=== PATIENT | female | born 1940 | race Caucasian/White ===

== ENCOUNTER → 2017-08-03 | Outpatient (REF) | payer MEDICARE, OTHER | LOC: M SMT 17:04 | PROVIDERS: ATTEND Urology | DX: R30.0 Dysuria (principal) ==

== ENCOUNTER → 2017-08-18 | Outpatient (REF) | payer MEDICARE, OTHER | LOC: M SMT 13:05 | PROVIDERS: ATTEND Nurse Practitioner Family | DX: N39.0 Urinary tract infection, site not specified (principal) ==

== ENCOUNTER 2018-08-02 07:20 | Day surgery (SDC) | payer MEDICARE, OTHER ==
[~2018-08-02 07:20] MED LIST: ACETAMINOPHEN 325 MG TAB PO; LIDOCAINE 3.5 % 1ML OPHTH TOPICAL GEL OU; OFLOXACIN 0.3 % (OCUFLOX) OPTH SOL 5ML OS; PROPARACAINE 0.5% OPHTH SOL 15ML OS
[2018-08-02] MEDS: BETAMETHASONE SOLUSPAN 6MG/ML INJ 5ML (J0702) As Ordered (09:03)
[2018-08-02] MEDS: LIDOCAINE 2% W/EPIN INJ 20ML **PRES FREE As Ordered (09:04)
[2018-08-02] MEDS ORDERED: fentaNYL 100 MCG/2 ML INJECTION (J3010) As Ordered (09:23)
[2018-08-02] MEDS ORDERED: MIDAZOLAM INJ 2 MG/2 ML VIAL (J2250) As Ordered (09:23)
[2018-08-02] MEDS: DUOVISC (0.50ML VISCOAT/0.55ML PROVISC) OPHTH KIT As Ordered (09:24)
[2018-08-02] MEDS: HEALON DUET PRO(HEALON 10MG/ML 0.55ML & HEALON ENDOCOAT 30MG/ML 0.85ML) As Ordered (09:24)
[2018-08-02] MEDS: POVIDONE-IODINE 5% OPHTH PREP SOL 30ML As Ordered (09:25)
[2018-08-02] MEDS: CEFUROXIME 1MG/0.1ML INTRACAMERAL INJ As Ordered (09:31)
[2018-08-02] MEDS: TOBRADEX OPHTH OINT 3.5 GM As Ordered (09:33)
[2018-08-02] MEDS ORDERED: TRIMETHOBENZAMIDE 300 MG CAP PO (10:45)
== END 2018-08-02 10:45 | disposition home or self-care (01) ==
LOC: M SDC 07:20
DX: H18.22 Idiopathic corneal edema (principal); I10 Essential (primary) hypertension; E78.5 Hyperlipidemia, unspecified; Z79.82 Long term (current) use of aspirin; Z79.899 Other long term (current) drug therapy
CPT/HCPCS: 66184

== ENCOUNTER → 2020-01-30 | Outpatient (REF) | payer MEDICARE, OTHER ==
[~2020-01-30] MED LIST changes: -ACETAMINOPHEN 325 MG TAB PO; +ASPI81TA26 PO; +COSO1SOL2 OU; +DOXY200C PO; +LEVO125T4 PO; -LIDOCAINE 3.5 % 1ML OPHTH TOPICAL GEL OU; +METO1TAB7 PO; +MULT1TAB10 PO; -OFLOXACIN 0.3 % (OCUFLOX) OPTH SOL 5ML OS; +OMEG1CAP16 PO; +OMEP1CAP73 PO; +PRAV10TA3 PO; -PROPARACAINE 0.5% OPHTH SOL 15ML OS; +zioptan OU
[2020-01-30 19:47] LABS: APPEARANCE, URINE HAZY (CLEAR); BACTERIA, URINE AUTO NEGATIVE (NEGATIVE); BILIRUBIN, URINE AUTO NEGATIVE (NEGATIVE); BLOOD, URINE BLOOD NEGATIVE (NEGATIVE); COLOR, URINE YELLOW (YELLOW); GLUCOSE, URINE (UA) AUTO NEGATIVE (NEGATIVE); KETONE, URINE AUTO NEGATIVE (NEGATIVE); LEUKOCYTE ESTERASE, URINE AUTO 3+ (NEGATIVE); MUCUS, URINE SMALL (NEGATIVE); NITRITE, URINE AUTO NEGATIVE (NEGATIVE); PROTEIN, URINE AUTO NEGATIVE (NEGATIVE); RBC, URINE AUTO 8 /HPF (0-3); SPECIFIC GRAVITY URINE AUTO 1.021 (1.002-1.035); SQUAMOUS EPITHELIAL CELL UR AU 0 /HPF (0-6); UROBILINOGEN, URINE AUTO 0.2 mg/dL (0.0-2.0); WBC, URINE AUTO 123 /HPF (0-3)
== END ==
LOC: M SMT 17:17
PROVIDERS: ATTEND Nurse Practitioner Women's Health
DX: R30.0 Dysuria (principal)
CPT/HCPCS: 51798; 81001; 87086; 87480; 87510; 87660; G0463

== ENCOUNTER → 2020-03-13 | Outpatient (CLI) | payer MEDICARE, OTHER ==
[~2020-03-13] MED LIST changes: +MULTCAP PO; +OMEGCAP4 PO; +TYLE650T35 PO
--- NOTE | 2020-03-13 14:11 | REP ---
REASON: Preoperative evaluation. COMPARISON: 07/01/2011, the latest prior. FINDINGS: The superior mediastinal structures are midline. The cardiac silhouette is unremarkable in size, shape, and position. The diaphragmatic surfaces of the lungs are regular, and the costophrenic angles are clear. The pulmonary cueva are clear. The imaged osseous structures are intact. IMPRESSION: There is no acute cardiopulmonary disease. No significant change from the prior exam. Electronically Signed by Aryan Watkins DO 03/13/2020 04:09 P
[2020-03-13 14:17] LABS: APPEARANCE, URINE CLOUDY (CLEAR); BACTERIA, URINE AUTO 1+ (NEGATIVE); BILIRUBIN, URINE AUTO NEGATIVE (NEGATIVE); BLOOD, URINE BLOOD 1+ (NEGATIVE); COLOR, URINE YELLOW (YELLOW); GLUCOSE, URINE (UA) AUTO NEGATIVE (NEGATIVE); KETONE, URINE AUTO NEGATIVE (NEGATIVE); LEUKOCYTE ESTERASE, URINE AUTO 3+ (NEGATIVE); MUCUS, URINE SMALL (NEGATIVE); NITRITE, URINE AUTO NEGATIVE (NEGATIVE); PROTEIN, URINE AUTO NEGATIVE (NEGATIVE); RBC, URINE AUTO 21 /HPF (0-3); RENAL EPITHELIAL CELLS 1 /HPF; SPECIFIC GRAVITY URINE AUTO 1.018 (1.002-1.035); SQUAMOUS EPITHELIAL CELL UR AU 1 /HPF (0-6); UROBILINOGEN, URINE AUTO 0.2 mg/dL (0.0-2.0); WBC, URINE AUTO 106 /HPF (0-3)
[2020-03-13 14:21] LABS: INR 0.99; PROTHROMBIN TIME 12.8 SECONDS (11.8-14.0)
[2020-03-13 14:22] LABS: PARTIAL THROMBOPLASTIN TIME 28.5 SECONDS (25.0-38.4)
[2020-03-13 15:25] LABS: BLOOD UREA NITROGEN 21 MG/DL (7-18); CARBON DIOXIDE LEVEL 28 mmol/L (20-29); CHLORIDE LEVEL 108 MEQ/L (98-107); CREATININE FOR GFR 0.69 MG/DL (0.55-1.30); GLOMERULAR FILTRATION RATE > 60.0 (>39); GLUCOSE, FASTING 94 MG/DL (70-100); POTASSIUM SERUM 4.4 MEQ/L (3.5-5.1); SODIUM LEVEL 144 MEQ/L (136-145)
== END ==
LOC: M LRY 10:58
PROVIDERS: ATTEND Nurse Practitioner Women's Health
DX: Z01.818 Encounter for other preprocedural examination (principal); N13.2 Hydronephrosis with renal and ureteral calculous obstruction; Z11.59 Encounter for screening for other viral diseases
CPT/HCPCS: 36415; 71046; 80048; 81001; 85610; 85730; 87086; C9803; U0003

== ENCOUNTER → 2020-03-13 | Outpatient (CLI) | payer MEDICARE, OTHER | LOC: M LABSMTC 10:11 | PROVIDERS: ATTEND Anesthesiology | DX: Z01.818 Encounter for other preprocedural examination (principal); Z11.59 Encounter for screening for other viral diseases ==

== ENCOUNTER → 2020-03-14 | Outpatient (REF) | payer MEDICARE, OTHER ==
[~2020-03-14] MED LIST changes: +ACET650T61 PO; +FLUC200T2 PO; -TYLE650T35 PO
[2020-03-14 19:54] LABS: APPEARANCE, URINE CLOUDY (CLEAR); BACTERIA, URINE AUTO 1+ (NEGATIVE); BILIRUBIN, URINE AUTO NEGATIVE (NEGATIVE); BLOOD, URINE BLOOD NEGATIVE (NEGATIVE); COLOR, URINE YELLOW (YELLOW); GLUCOSE, URINE (UA) AUTO NEGATIVE (NEGATIVE); KETONE, URINE AUTO NEGATIVE (NEGATIVE); LEUKOCYTE ESTERASE, URINE AUTO 3+ (NEGATIVE); MUCUS, URINE SMALL (NEGATIVE); NITRITE, URINE AUTO NEGATIVE (NEGATIVE); PROTEIN, URINE AUTO NEGATIVE (NEGATIVE); RBC, URINE AUTO 4 /HPF (0-3); SPECIFIC GRAVITY URINE AUTO 1.019 (1.002-1.035); SQUAMOUS EPITHELIAL CELL UR AU 0 /HPF (0-6); UROBILINOGEN, URINE AUTO 0.2 mg/dL (0.0-2.0); WBC, URINE AUTO 32 /HPF (0-3)
== END ==
LOC: M SMT 17:22
PROVIDERS: ATTEND Nurse Practitioner Women's Health
DX: Z01.818 Encounter for other preprocedural examination (principal); N13.2 Hydronephrosis with renal and ureteral calculous obstruction

== ENCOUNTER 2020-03-18 07:35 | Day surgery (SDC) | payer MEDICARE, OTHER ==
[~2020-03-18] VITALS: Ht 154.9 cm; Wt 76.7 kg
[~2020-03-18 07:35] MED LIST changes: -FLUC200T2 PO; +ceFAZolin SOD 2 GM in IV 1 EA IV ONE
[2020-03-18] MEDS ORDERED: LR 1,000 ML IV SCH ×2 (07:45→11:15)
[2020-03-18] MEDS ORDERED: FLUC200T2 PO (08:04)
[2020-03-18] MEDS ORDERED: CONRAY-60 60% 50ML VIAL (Q9961) As Ordered ONE (09:42)
[2020-03-18] MEDS ORDERED: MIDAZOLAM INJ 2MG/2ML VIAL (J2250 PER 1MG) As Ordered ONE (09:58)
[2020-03-18] MEDS ORDERED: fentaNYL 100 MCG/2 ML INJECTION (J3010) As Ordered ONE (09:58)
[2020-03-18] MEDS ORDERED: propofoL 200 MG/20 ML VIAL As Ordered ONE (10:19)
[2020-03-18] MEDS ORDERED: ONDANSETRON 4MG/2ML VIAL As Ordered ONE (10:19)
[2020-03-18] MEDS ORDERED: dexameTHASONE 4 MG/ML 1ML VIAL (J1100 PER 1MG) As Ordered ONE (10:19)
[2020-03-18] MEDS ORDERED: LIDOCAINE 2% 100MG/5ML SDV (FOR ANES.) As Ordered ONE (10:19)
--- NOTE | 2020-03-18 10:51 | REP ---
Clinical: Retrograde pyelogram. Hydronephrosis. Technique: Intraoperative fluoroscopic imaging. Findings: Multiple images demonstrate left-sided hydronephrosis with subsequent left ureteral stent placement in satisfactory position. Total fluoroscopic time 11 seconds. Impression: Moderate left hydronephrosis with left ureteral stent placement. Electronically Signed by James Guidry MD 03/18/2020 10:42 A
[2020-03-18] MEDS ORDERED: PERCOCET 5MG/325MG TAB PO PRN (11:15)
[2020-03-18] MEDS ORDERED: fentaNYL 100 MCG/2 ML INJECTION (J3010) IV PRN (11:15)
[2020-03-18] MEDS ORDERED: oxyCODONE 5MG TAB PO PRN (11:15)
[2020-03-18] MEDS ORDERED: ONDANSETRON 4MG/2ML VIAL IV PRN (11:15)
[2020-03-18] MEDS ORDERED: LABETALOL 100MG/20ML VIAL IV SCH (11:15)
[2020-03-18 11:35] VITALS: BP 195/84
[2020-04-15 14:43] LABS: CA Oxalate Dihy 50 % (.); Ca Ox Monohydrate 50 % (.); Size 6x4 mm (.)
--- NOTE | 2020-07-09 11:22 | RO ---
DATE OF OPERATION: 03/18/2020 PREOPERATIVE DIAGNOSIS: Left ureteral stone, bladder stones. POSTOPERATIVE DIAGNOSIS: Left ureteral stone, bladder stones. PROCEDURES: 1. Cystoscopy. 2. Left ureteroscopy with basket extraction of stones. 3. Removal of bladder stones. 4. Left retrograde pyelogram with intra-op interpretation of images. 5. Left ureteral stent placement. SURGEON: Jeff Patel MD BEET WORKER: None. ANESTHESIA: General. OPERATIVE INDICATIONS: This is a 79-year-old female who was found to have an obstructing 7 mm distal left ureteral stone as well as several bladder stones. She is brought to the operating room for treatment. DESCRIPTION OF PROCEDURE: The patient was brought to the operating room and general anesthesia administered. Prophylactic antibiotics were infused. She was placed in the dorsal lithotomy position and prepped and draped in usual sterile fashion. A rigid cystoscope was inserted into the urethral meatus and advanced into the bladder. Bladder stones were seen. They were drained out of the bladder using cystoscope. A guidewire was advanced up the left collecting system. I then went up the left collecting system with short semi-rigid ureteroscope and the 7 mm ureteral stone was seen. The stone was grasped with the basket and removed intact. The more proximal ureter was then examined and no additional stones were seen. A retrograde pyelogram was performed and was notable for mild to moderate left hydronephrosis with no extravasation. The ureteroscope was then withdrawn and once again no additional stones were seen. The previous placed guidewire was utilized to advance a 6-Welsh x 22-32 cm JJ ureteral stent up the left collecting system. The wire was removed and there were adequate curls of the stent in the left renal pelvis and in the bladder. The bladder was emptied of all fluids and this marked the conclusion of the procedure. The patient was awakened from anesthesia and transported to recovery room in stable condition. ESTIMATED BLOOD LOSS: 5 mL. COMPLICATIONS: None. SPECIMENS: Ureteral stone, bladder stones. PLAN: The patient will follow up for removal of her stent. LIV
== END 2020-03-18 12:04 | disposition home or self-care (01) ==
LOC: M SDC 07:35
PROVIDERS: ATTEND Urology
DX: N20.0 Calculus of kidney (principal); N21.0 Calculus in bladder; Z88.8 Allergy status to other drugs, medicaments and biological substances; G43.909 Migraine, unspecified, not intractable, without status migrainosus; I10 Essential (primary) hypertension; E03.9 Hypothyroidism, unspecified; Z79.82 Long term (current) use of aspirin; Z79.899 Other long term (current) drug therapy
CPT/HCPCS: 52332; 52352; 74420; 82365; 88300; C1769; C1894; C2617; J0690; J1100; J2250; J2405; J3010; Q9961

== ENCOUNTER 2023-07-26 12:38 | Emergency (ER) | payer MEDICARE, OTHER ==
[~2023-07-26] VITALS: Ht 154.9 cm; Wt 76.8 kg
[~2023-07-26 12:38] MED LIST changes: -COSO1SOL2 OU; +DORZ1DRO6 OU; +FLUC200T4 PO; -ceFAZolin SOD 2 GM in IV 1 EA IV ONE
[2023-07-26 13:01] VITALS: TEMP 97.9
[2023-07-26 13:18] LABS: BASO # 0.1 10^3/uL (0.0-0.2); BASO % 0.6 % (0.0-1.0); EOS # 0.1 10^3/uL (0.0-0.5); EOS % 1.5 % (0.0-3.0); HEMATOCRIT 46.7 % (36.0-47.0); HEMOGLOBIN 15.9 g/dl (12.0-15.5); LYMPH % 23.1 % (24.0-44.0); MEAN CORPUSCULAR HEMOGLOBIN 31.5 pg (27.0-33.0); MEAN CORPUSCULAR VOLUME 92.5 fl (80.0-96.0); MONO # 0.8 10^3/uL (0.0-0.8); MONO % 8.9 % (2.0-8.0); NEUTROPHILS # 5.8 10^3/uL (1.5-8.5); NEUTROPHILS % 65.7 % (36.0-66.0); PLATELET COUNT, AUTOMATED 325 10^3/uL (150-450); RED BLOOD COUNT 5.05 10^6/uL (4.00-5.40); WHITE BLOOD COUNT 8.8 10^3/uL (4.0-10.0)
[2023-07-26 13:30] LABS: INR 0.93; PROTHROMBIN TIME 12.2 SECONDS (12.5-14.5)
[2023-07-26 13:31] LABS: PARTIAL THROMBOPLASTIN TIME 23.3 SECONDS (24.8-34.2)
[2023-07-26 13:42] LABS: LIPASE 26 U/L (12-53)
[2023-07-26 13:45] LABS: ALKALINE PHOSPHATASE 88 U/L (46-116); ALT/SGPT 26 U/L (7.0-40); AST/SGOT 19 U/L (<34); BILIRUBIN,DIRECT 0.2 MG/DL (<0.4); BILIRUBIN,TOTAL 0.5 MG/DL (0.3-1.2); BLOOD UREA NITROGEN 21 MG/DL (9-23); CARBON DIOXIDE LEVEL 32 MMOL/L (20-31); CHLORIDE LEVEL 103 MMOL/L (98-107); CK-MB VALUE MASS < 1.0 NG/ML (<3.6); GLOMERULAR FILTRATION RATE > 60.0 (>32); GLUCOSE, FASTING 94 MG/DL (74-106); POTASSIUM SERUM 4.1 MMOL/L (3.5-5.1); SODIUM LEVEL 141 MMOL/L (136-145); TOTAL PROTEIN 6.9 G/DL (5.7-8.2)
[2023-07-26 13:49] LABS: FREE T4 1.58 NG/DL (0.89-1.76)
[2023-07-26 13:50] LABS: THYROID STIMULATING HORMONE 2.103 uIU/ML (0.55-4.78)
[2023-07-26 13:52] LABS: CPK CREATINE PHOSPHOKINASE 100 U/L (34-145)
[2023-07-26 14:00] LABS: RSV AMPLIFICATION NEGATIVE (NEGATIVE)
[2023-07-26 15:00] LABS: CK-MB VALUE MASS < 1.0 NG/ML (<3.6)
[2023-07-26 15:01] LABS: CPK CREATINE PHOSPHOKINASE 74 U/L (34-145); MB/CK RELATIVE INDEX 1.35 (< OR =4)
[2023-07-26 18:30] VITALS: BP 175/84; O2SAT 93
[2023-07-26] MEDS ORDERED: GABAPENTIN 100 MG CAP PO ONE (18:35)
[2023-07-26] MEDS ORDERED: NEUR100C PO (18:36)
== END 2023-07-26 19:02 | disposition home or self-care (01) ==
LOC: M ED 12:38
DX: R68.84 Jaw pain (principal); I10 Essential (primary) hypertension; E78.5 Hyperlipidemia, unspecified; G50.0 Trigeminal neuralgia; H40.9 Unspecified glaucoma; Z79.82 Long term (current) use of aspirin; Z79.899 Other long term (current) drug therapy; Z88.8 Allergy status to other drugs, medicaments and biological substances